=== PATIENT | female | born 1975 | race Caucasian/White ===

== ENCOUNTER → 2019-10-31 | Outpatient (CLI) | payer BC ==
[2019-10-31 13:35] VITALS: BP 117/76; PULSE 64; RESP 16; TEMP 98.3; BMI 29.7
--- NOTE | 2019-10-31 16:08 | P.BASOAP ---
Subjective Progress Note Date: 10/31/19 Principal diagnosis: Morbid obesity Patient returns for follow-up. Last seen November 2017 it appears. She is down 3 pounds since that time. States she was as low as 132 at one point with her lap band. Denies nausea or vomiting, no dysphagia, no GERD, no night cough. Patient's band was to have been at around 4.3 mL. She is interested in an adjustment. We agreed to add 0.5 mL today. Objective - Vital Signs Vital signs: Vital Signs Temp 98.3 F 10/31/19 13:28 Pulse 64 10/31/19 13:28 Resp 16 10/31/19 13:28 BP 117/76 10/31/19 13:28 Pulse Ox Intake & Output 10/30/19 10/31/19 10/31/19 18:59 06:59 18:59 Weight 80.881 kg - Exam Abdomen: Soft, nontender, nondistended Assessment/Plan (1) Morbid obesity Narrative/Plan: Patient is interested in band adjustment. We agreed at 0.5 mL. At the time of the band adjustment with drawl of fluid showed over 6 mL within the band. She has had some discrepancies in the volume. We did add 0.5 mL. For documentation purposes will state that she is at 4.8 mL currently. Some residual fluid in band though is present. Patient tolerated liquids without difficulty. Follow- up 1-2 months. Plan: Date: 10/31/19 Initial Weight: Initial BMI: Current Weight: 80.881 kg Current BMI: 29.7 Type of Surgery: Total Volume in Band: Previous Volume: Volume Removed: Volume Added: Band Size:
== END | disposition home or self-care (01) ==
LOC: BARWHC3 13:13
PROVIDERS: ATTEND Surgery
DX: E66.01 Morbid (severe) obesity due to excess calories (principal); Z68.29 Body mass index [BMI] 29.0-29.9, adult
CPT/HCPCS: 99211

== ENCOUNTER → 2024-09-26 | Outpatient (CLI) | payer BC ==
--- NOTE | 2024-09-26 13:35 | P.BASOAP ---
Subjective Progress Note Date: 09/26/24 Principal diagnosis: Morbid obesity Patient here for Lap-Band adjustment. Says over the last 6 months she has had increasing hunger. Weight is down from her last visit 5 years ago however she had a fill at that time. Says she has been fluctuating between 140 and 150 since then. She does have some pulling discomfort at her port site occasionally depending on motion. No overlying skin changes. Objective - Exam Abdomen: Soft, nontender, nondistended, port site with minimal tenderness Assessment/Plan (1) Morbid obesity Narrative/Plan: 49-year-old female doing well after Lap-Band in the past. Asking for more fluid to be added. Some decreased restriction recently. Will add 0.3 cc. Monitor port site discomforts. The patient's lap band port was palpated. The site was aseptically prepped. The Arias needle was advanced into the port. A total of 0.3 ml of fluid was added for a total of 6.5 cc. Pressure was held and a sterile dressing was applied. Plan: Date: Initial Weight: Initial BMI: Current Weight: Current BMI: Type of Surgery: Total Volume in Band: Previous Volume: Volume Removed: Volume Added: Band Size:
[2024-09-26 13:42] VITALS: BP 104/57; PULSE 65; TEMP 98.1; BMI 25.4
== END ==
LOC: BARWHC3 13:18
PROVIDERS: ATTEND Surgery
DX: E66.01 Morbid (severe) obesity due to excess calories (principal); Z68.25 Body mass index [BMI] 25.0-25.9, adult; Z87.891 Personal history of nicotine dependence; Z91.040 Latex allergy status; Z91.09 Other allergy status, other than to drugs and biological substances; Z71.3 Dietary counseling and surveillance
CPT/HCPCS: 43999